=== PATIENT | male | born 1955 | race Caucasian/White ===

== ENCOUNTER 2016-09-10 11:31 | Inpatient (IN) | payer OTHER ==
[2016-09-10 11:58] VITALS: BMI 42.0
--- NOTE | 2016-09-10 13:48 | HP ---
CIWA Score - CIWA Score Nausea/Vomitin Muscle Tremors: 3 Anxiety: 3 Agitation: 2 Paroxysmal Sweats: 2 Orientation: 0-Oriented Tacttile Disturbances: 2-Mild Itch/Numbness/Burn Auditory Disturbances: 2-Mild Harshness/Frighten Visual Disturbances: 2-Mild Sensitivity Headache: 2-Mild CIWA-Ar Total Score: 21 Admission ROS BHS - HPI Chief Complaint: i need help to stop drinking alcohol Allergies/Adverse Reactions: Allergies Allergy/AdvReac Type Severity Reaction Status Date / Time No Known Allergies Allergy Verified 09/10/16 12:26 History of Present Illness: this 60 years old with alcohol dependence,withdrawal symptom,last detox in 1985 syncope alcohol related legally blind left s/o corrective surgery left longest period of sobriety 2o years Exam Limitations: No Limitations - Ebola screening Have you traveled outside of the country in the last 21 days: No Have you been sick,other than usual withdrawal symptoms: No - Review of Systems Constitutional: Loss of Appetite, Malaise, Night Sweats, Changes in sleep EENT: reports: Nose Congestion, Other (legally blind left s/p correctiv esurgery left) Respiratory: reports: No Symptoms reported Cardiac: reports: No Symptoms Reported GI: reports: Diarrhea, Nausea, Vomiting : reports: No Symptoms Reported Musculoskeletal: reports: Back Pain, Muscle Pain Integumentary: reports: Dryness Neuro: reports: Headache, Tremors Endocrine: reports: No Symptoms Reported Hematology: reports: No Symptoms Reported Psychiatric: reports: Depressed Other Systems: Reviewed and Negative Patient History - Patient Medical History Hx Anemia: No Hx Asthma: No Hx Chronic Obstructive Pulmonary Disease (COPD): No Hx Cancer: No Hx Cardiac Disorders: No Hx Congestive Heart Failure: No Hx Hypertension: No Hx Hypercholesterolemia: No HX Cerebrovascular Accident: No Hx Seizures: No Hx Dementia: No Hx Diabetes: No Hx Gastrointestinal Disorders: Yes (acid reflux) Hx Liver Disease: No Hx Genitourinary Disorders: No Hx Sexually Transmitted Disorders: No Hx Renal Disease (ESRD): No Hx Thyroid Disease: No Hx Human Immunodeficiency Virus (HIV): No (last 1007) Hx Hepatitis C: No Hx Depression: Yes (anxiety,insonia) Hx Suicide Attempt: No Hx Bipolar Disorder: No Hx Schizophrenia: No Other Medical History: no suicidal,no homicidal - Patient Surgical History Past Surgical History: Yes Hx Neurologic Surgery: No Hx Cataract Extraction: No Hx Cardiac Surgery: No Hx Lung Surgery: No Hx Breast Surgery: No Hx Breast Biopsy: No Hx Abdominal Surgery: No Hx Appendectomy: No Hx Cholecystectomy: No Hx Genitourinary Surgery: No Hx Section: No Hx Orthopedic Surgery: No Other Surgical History: left eye x2 legally blind left Anesthesia Reaction: No - PPD History Previous Implant?: Yes Documented Results: Negative w/o proof Implanted On Prior R Admission?: No PPD to be Administered?: Yes - Smoking Cessation Smoking history: Former smoker Have you smoked in the past 12 months: No If you are a former smoker, when did you quit?: 1985 Hx Chewing Tobacco Use: No Initiated information on smoking cessation: No - Substance & Tx. History Hx Alcohol Use: Yes Hx Substance Use: No Substance Use Type: Alcohol Hx Substance Use Treatment: Yes (1996 in [place]) - Substances Abused Alcohol-vodka Route: Oral Frequency: Daily Amount used: 1 pt. Age of first use: 14 Date of Last Use: 09/10/16 Family Disease History - Family Disease History Family History: Denies Admission Physical Exam [facility] - Vital Signs Vital Signs: Vital Signs - 24 hr 09/10/16 11:56 Temperature 99.2 F Pulse Rate 109 H Respiratory 20 Rate Blood Pressure 126/84 - Physical General Appearance: Yes: Moderate Distress, Tremorous, Irritable, Sweating, Anxious HEENTM: Yes: Normal ENT Inspection (legally blind left), Nasal Congestion, Rhinorrhea Respiratory: Yes: Lungs Clear, Normal Breath Sounds, No Respiratory Distress Neck: Yes: Supple, Trachea in good position Breast: Yes: Within Normal Limits Cardiology: Yes: Within Normal Limits, Regular Rhythm, Regular Rate, S1, S2 Abdominal: Yes: Within Normal Limits, Normal Bowel Sounds, Non Tender, Soft Genitourinary: Yes: Within Normal Limits Back: Yes: Muscle Spasm Musculoskeletal: Yes: Back pain, Muscle Pain Neurological: Yes: prototype engineer II-XII NML intact, Fully Oriented, Alert, Motor Strength 5/5 Integumentary: Yes: Dry Lymphatic: Yes: Within Normal Limits - Diagnostic (1) Alcohol dependence with uncomplicated withdrawal Current Visit: Yes Status: Acute (2) Syncope Current Visit: Yes Status: Acute (3) Insomnia Current Visit: Yes Status: Acute (4) Anxiety and depression Current Visit: Yes Status: Acute (5) GERD (gastroesophageal reflux disease) Current Visit: Yes Status: Acute (6) Blindness of left eye Current Visit: Yes Status: Acute Cleared for Admission [facility] - Detox or Rehab [facility] Level of Care: Medically Managed Detox Regimen/Protocol: Librium [facility] Breath Alcohol Content Breath Alcohol Content: 0.144 Urine Drug Screen - Results Drug Screen Negative: Yes
[2016-09-10] MEDS ORDERED: IBUPROFEN 400 MG TABLET (FP) PO PRN (14:01)
[2016-09-10] MEDS ORDERED: LOPERAMIDE HCL 2 MG CAPSULE PO PRN (14:01)
[2016-09-10] MEDS ORDERED: guaiFENesin/D-METHORPHAN HB 10 ML UNIT-DOSE CUPS PO PRN (14:01)
[2016-09-10] MEDS ORDERED: MENTHOL/PHENOL 1 EACH UD MM PRN (14:01)
[2016-09-10] MEDS ORDERED: P-EPHED 60MG/TRIPROLIDI 2.5MG TABLET PO PRN (14:01)
[2016-09-10] MEDS ORDERED: ACETAMINOPHEN 325 MG TABLET (FP) PO PRN (14:01)
[2016-09-10] MEDS ORDERED: MAG HYDROX/AL HYDROX/SIMETH 30 ML UNIT-DOSE CUP PO PRN (14:01)
[2016-09-10] MEDS ORDERED: MAGNESIUM HYDROX 2400MG/30ML ORAL SUSPENSION 30 ML CUP PO PRN (14:01)
[2016-09-10] MEDS ORDERED: MAGNESIUM CITRATE 300 ML BOTTLE PO PRN (14:01)
[2016-09-10 14:39] LABS: HIV 1 & 2 AB NEGATIVE; HIV 1 AGp24 NEGATIVE
[2016-09-10] MEDS ORDERED: chlordiazePOXIDE HCL 25 MG CAPSULE PO ONE (15:00)
--- NOTE | 2016-09-10 16:46 | CONSULT ---
[facility] Psychiatric Consult - Data Date of interview: 09/10/16 Admission source: [facility] Identifying data: First admission to [facility] for this 60 y/o male seeking detox treatment for alcohol dependence.Patient is ,a father of one,domiciled,unemployed and supported on his senior living benefits. Substance Abuse History: - Smoking Cessation. Smoking history: Former smoker. Have you smoked in the past 12 months: No. If you are a former smoker, when did you quit?: 1985. Hx Chewing Tobacco Use: No. Initiated information on smoking cessation: No. - Substance & Tx. History. Hx Alcohol Use: Yes. Hx Substance Use: No. Substance Use Type: Alcohol. Hx Substance Use Treatment: Yes (1996 in [email or web address] - Substances Abused. Alcohol-vodka. Route: Oral. Frequency: Daily. Amount used: 1 pt. Age of first use: 14. Date of Last Use: 09/10/16. Confirmed by patient. Medical History: GERD and obesity.Blind in left eye and past history of orthosurgery for fracture of left ankle. Psychiatric History: History of treatment for anxiety (prescribed valium by a primary care doctor).Patient reports that his physician stopped providing scripts in December 2015 and,from that time on,his alcohol consumption escalated.No OPD care.Mr Ac has no contact with psychiatrists.He denies history of suicide attempts. Physical/Sexual Abuse/Trauma History: Patient denies. Additional Comment: Drug Screen Negative: Yes.Noted. Mental Status Exam - Mental Status Exam Alert and Oriented to: Time, Place, Person Cognitive Function: Good Patient Appearance: Well Groomed (obese) Mood: Anxious, Apprehensive, Hopeful Affect: Normal Range Patient Behavior: Appropriate, Cooperative (well-mannered) Speech Pattern: Clear, Appropriate Voice Loudness: Normal Thought Process: Goal Oriented Thought Disorder: Not Present Hallucinations: Denies Suicidal Ideation: Denies Homicidal Ideation: Denies Insight/Judgement: Fair Sleep: Poorly, Difficulty falling asleep Appetite: Good Muscle strength/Tone: Normal Gait/Station: Normal Psychiatric Findings - Problem List ([place] 1, 2,3) (1) Alcohol dependence with uncomplicated withdrawal Current Visit: Yes Status: Acute (2) Alcohol-induced mood disorder Current Visit: Yes Status: Suspected (3) Blindness of left eye Current Visit: Yes Status: Chronic (4) GERD (gastroesophageal reflux disease) Current Visit: Yes Status: Chronic (5) Insomnia Current Visit: Yes Status: Acute - Initial Treatment Plan Initial Treatment Plan: Psychoeducation.Detoxification.Choices of hypnotic medications are presented to the patient.Zolpidem is out of question (patient reports occurrence of parasomnias :moving in the house/calling people through the night while asleep).He rejects seroquel (patient is already morbidly obese); trazodone is avoided out of fear of erectile issues.Patient agrees to have a trial with mirtazapine at the dose of 7.5 mg po hs.Side effects/benefits discussed with the patient.Observation.
[2016-09-10] MEDS: chlordiazePOXIDE HCL 25 MG CAPSULE PO SCH ×2 (17:14→22:01)
[2016-09-10 20:49] LABS: URINE APPEARANCE CLEAR; URINE BILIRUBIN NEGATIVE (NEGATIVE); URINE BLOOD NEGATIVE (NEGATIVE); URINE COLOR LTYELLOW; URINE GLUCOSE (UA) NEGATIVE (NEGATIVE); URINE KETONE NEGATIVE (NEGATIVE); URINE LEUK ESTERASE NEGATIVE (NEGATIVE); URINE NITRITE NEGATIVE (NEGATIVE); URINE PROTEIN NEGATIVE (NEGATIVE); URINE UROBILINOGEN NEGATIVE E.U./dl (0.2-1.0)
[2016-09-10] MEDS: diphenhydrAMINE HCL 50 MG CAPSULE PO PRN (22:01)
[2016-09-10] MEDS: THIAMINE HCL 100 MG TABLET (FP) PO SCH (22:01)
[2016-09-10] MEDS: MIRTAZAPINE 15 MG TABLET (FP) PO SCH (22:02)
[2016-09-11] MEDS: chlordiazePOXIDE HCL 25 MG CAPSULE PO PRN ×4 (02:14→19:25)
[2016-09-11] MEDS: chlordiazePOXIDE HCL 25 MG CAPSULE PO SCH ×4 (05:31→22:02)
[2016-09-11 10:02] LABS: MCH 34.9 pg (25.7-33.7); MCHC 33.1 g/dl (32.0-35.9); MEAN CELL VOLUME 105.7 fl (80-96); MEAN PLT VOLUME 9.9 fl (7.5-11.1); PLATELET COUNT 171 K/MM3 (134-434); RDW 14.6 % (11.9-15.9); WHITE BLOOD COUNT 4.4 K/mm3 (4.0-10.0)
[2016-09-11] MEDS: PANTOPRAZOLE 40 MG TABLET (FP) PO SCH (10:06)
[2016-09-11] MEDS: PRENATAL VITAMINS W/ FOLIC ACID TABLET (FP) PO SCH (10:06)
--- NOTE | 2016-09-11 10:53 | PN ---
[facility] CIWA - CIWA Score Nausea/Vomitin-No Nausea/No Vomiting Muscle Tremors: 4-Moderate,w/Arms Extend Anxiety: 4-Mod. Anxious/Guarded Agitation: 4-Moderately Restless Paroxysmal Sweats: 1-Minimal Palms Moist Orientation: 0-Oriented Tacttile Disturbances: 3-Moderate Itch/Numb/Burn Auditory Disturbances: 0-None Visual Disturbances: 0-None Headache: 0-None Present CIWA-Ar Total Score: 16 BHS Progress Note (SOAP) Subjective: ANXIETY,SWEATS, TREMORS,INTERMITTENT SLEEP Objective: 09/11/16 10:52 Vital Signs Temperature 98.1 F 09/11/16 09:31 Pulse Rate 106 H 09/11/16 09:31 Respiratory Rate 20 09/11/16 09:31 Blood Pressure 144/89 09/11/16 09:31 O2 Sat by Pulse Oximetry (%) Laboratory Last Values WBC 4.4 K/mm3 (4.0-10.0) 09/11/16 06:00 RBC 4.59 M/mm3 (4.00-5.60) 09/11/16 06:00 Hgb 16.0 GM/dL (11.7-16.9) 09/11/16 06:00 Hct 48.5 % (35.4-49) 09/11/16 06:00 MCV 105.7 fl (80-96) H 09/11/16 06:00 MCHC 33.1 g/dl (32.0-35.9) 09/11/16 06:00 RDW 14.6 % (11.9-15.9) 09/11/16 06:00 Plt Count 171 K/MM3 (134-434) 09/11/16 06:00 MPV 9.9 fl (7.5-11.1) 09/11/16 06:00 Urine Color Ltyellow 09/10/16 19:30 Urine Appearance Clear 09/10/16 19:30 Urine pH 5.0 (5.0-8.0) 09/10/16 19:30 Ur Specific [place] 1.010 (1.001-1.035) 09/10/16 19:30 Urine Protein Negative (NEGATIVE) 09/10/16 19:30 Urine Glucose (UA) Negative (NEGATIVE) 09/10/16 19:30 Urine Ketones Negative (NEGATIVE) 09/10/16 19:30 Urine Blood Negative (NEGATIVE) 09/10/16 19:30 Urine Nitrite Negative (NEGATIVE) 09/10/16 19:30 Urine Bilirubin Negative (NEGATIVE) 09/10/16 19:30 Urine Urobilinogen Negative E.U./dl (0.2-1.0) 09/10/16 19:30 Ur Leukocyte Esterase Negative (NEGATIVE) 09/10/16 19:30 HIV 1&2 Antibody Screen Negative 09/10/16 13:20 HIV P24 Antigen Negative 09/10/16 13:20 Assessment: 09/11/16 10:53 WITHDRAWAL SX Plan: CONTINUE DETOX
[2016-09-11 11:14] LABS: ALBUMIN 4.6 g/dl (3.4-5.0); ALK PHOS 60 U/L (45-117); ANION GAP 14 (8-16); BILIRUBIN,TOTAL 0.6 mg/dL (0.2-1.0); CALCIUM 9.5 mg/dL (8.5-10.1); CO2 25 mmol/L (21-32); GLUCOSE,RANDOM 79 mg/dL (74-106); SGOT/AST 90 U/L (15-37); SGPT/ALT 104 U/L (12-78); TOT PROT 7.3 g/dl (6.4-8.2)
[2016-09-11 11:49] LABS: ANISOCYTOSIS 2+
[2016-09-11 11:50] LABS: TEAR DROP CELLS 1+
[2016-09-11] MEDS ORDERED: INFLUENZA VACCINE 45 MCG/0.5 ML (MDV 16-17) IM ONE (12:00)
--- NOTE | 2016-09-11 17:18 | EKG ---
Test Reason : Blood Pressure : / mmHG Vent. Rate : 107 BPM Atrial Rate : 107 BPM P-R Int : 192 ms QRS Dur : 090 ms QT Int : 336 ms P-R-T Axes : 047 -14 041 degrees QTc Int : 448 ms SINUS TACHYCARDIA OTHERWISE NORMAL ECG NO PREVIOUS ECGS AVAILABLE Confirmed by STANLEY GARY MD ([id number]) on 09/11/2016 5:17:52 PM Referred By: Confirmed By:STANLEY GARY MD
[2016-09-11] MEDS: CYCLOBENZAPRINE HCL 10 MG TABLET (FP) PO SCH (22:02)
[2016-09-11] MEDS: THIAMINE HCL 100 MG TABLET (FP) PO SCH (22:02)
[2016-09-11] MEDS: MIRTAZAPINE 15 MG TABLET (FP) PO SCH (22:02)
[2016-09-11] MEDS: diphenhydrAMINE HCL 50 MG CAPSULE PO PRN (22:03)
[2016-09-12] MEDS: CYCLOBENZAPRINE HCL 10 MG TABLET (FP) PO SCH ×3 (05:39→22:08)
[2016-09-12] MEDS: chlordiazePOXIDE HCL 25 MG CAPSULE PO SCH ×2 (05:39→10:07)
--- NOTE | 2016-09-12 09:07 | PN ---
S CIWA - CIWA Score Nausea/Vomitin Muscle Tremors: 3 Anxiety: 4-Mod. Anxious/Guarded Agitation: 4-Moderately Restless Paroxysmal Sweats: 3 Orientation: 0-Oriented Tacttile Disturbances: 2-Mild Itch/Numbness/Burn Auditory Disturbances: 0-None Visual Disturbances: 0-None Headache: 0-None Present CIWA-Ar Total Score: 18 BHS Progress Note (SOAP) Subjective: Sweating,anxiety,tremors,interrupted sleep,restless Objective: 09/12/16 09:06 Vital Signs - 8 hr 09/12/16 06:37 Temperature 97.6 F Pulse Rate 104 H Respiratory 18 Rate Blood Pressure 131/91 Laboratory Last Values WBC 4.4 K/mm3 (4.0-10.0) 09/11/16 06:00 RBC 4.59 M/mm3 (4.00-5.60) 09/11/16 06:00 Hgb 16.0 GM/dL (11.7-16.9) 09/11/16 06:00 Hct 48.5 % (35.4-49) 09/11/16 06:00 MCV 105.7 fl (80-96) H 09/11/16 06:00 MCHC 33.1 g/dl (32.0-35.9) 09/11/16 06:00 RDW 14.6 % (11.9-15.9) 09/11/16 06:00 Plt Count 171 K/MM3 (134-434) 09/11/16 06:00 MPV 9.9 fl (7.5-11.1) 09/11/16 06:00 Anisocytosis 2+ 09/11/16 06:00 Macrocytosis 2+ 09/11/16 06:00 Tear Drop Cells 1+ 09/11/16 06:00 Sodium 142 mmol/L (136-145) 09/11/16 06:00 Potassium 3.7 mmol/L (3.5-5.1) 09/11/16 06:00 Chloride 103 mmol/L (98-107) 09/11/16 06:00 Carbon Dioxide 25 mmol/L (21-32) 09/11/16 06:00 Anion Gap 14 (8-16) 09/11/16 06:00 BUN 8 mg/dL (7-18) 09/11/16 06:00 Creatinine 1.0 mg/dL (0.7-1.3) 09/11/16 06:00 Creat Clearance w eGFR > 60 (>60) 09/11/16 06:00 Random Glucose 79 mg/dL (74-106) 09/11/16 06:00 Calcium 9.5 mg/dL (8.5-10.1) 09/11/16 06:00 Total Bilirubin 0.6 mg/dL (0.2-1.0) 09/11/16 06:00 AST 90 U/L (15-37) H 09/11/16 06:00 ALT 104 U/L (12-78) H 09/11/16 06:00 Alkaline Phosphatase 60 U/L (45-117) 09/11/16 06:00 Total Protein 7.3 g/dl (6.4-8.2) 09/11/16 06:00 Albumin 4.6 g/dl (3.4-5.0) 09/11/16 06:00 Urine Color Ltyellow 09/10/16 19:30 Urine Appearance Clear 09/10/16 19:30 Urine pH 5.0 (5.0-8.0) 09/10/16 19:30 Ur Specific [place] 1.010 (1.001-1.035) 09/10/16 19:30 Urine Protein Negative (NEGATIVE) 09/10/16 19:30 Urine Glucose (UA) Negative (NEGATIVE) 09/10/16 19:30 Urine Ketones Negative (NEGATIVE) 09/10/16 19:30 Urine Blood Negative (NEGATIVE) 09/10/16 19:30 Urine Nitrite Negative (NEGATIVE) 09/10/16 19:30 Urine Bilirubin Negative (NEGATIVE) 09/10/16 19:30 Urine Urobilinogen Negative E.U./dl (0.2-1.0) 09/10/16 19:30 Ur Leukocyte Esterase Negative (NEGATIVE) 09/10/16 19:30 RPR Titer Nonreactive (NONREACTIVE) 09/11/16 06:00 Hepatitis C Antibody 0.1 s/co ratio (0.0-0.9) 09/11/16 10:50 HIV 1&2 Antibody Screen Negative 09/10/16 13:20 HIV P24 Antigen Negative 09/10/16 13:20 labs noted Assessment: 09/12/16 09:06 Withdrawal sx. Plan: Continue detox
[2016-09-12] MEDS: PANTOPRAZOLE 40 MG TABLET (FP) PO SCH (10:07)
[2016-09-12] MEDS: PRENATAL VITAMINS W/ FOLIC ACID TABLET (FP) PO SCH (10:07)
[2016-09-12] MEDS: TOLNAFTATE 1% CREAM 15 GM TUBE TP SCH ×2 (10:08→22:16)
[2016-09-12] MEDS: chlordiazePOXIDE HCL 25 MG CAPSULE PO PRN ×2 (13:19→19:53)
[2016-09-12] MEDS: ALBUTEROL SO4 2.5/IPRATROPIUM 0.5 INH SOL 3 ML VIAL.NEB. NEB PRN ×2 (15:24→21:41)
[2016-09-12] MEDS: SODIUM CHLORIDE NASAL SPRAY 44 ML BOTTLE NS PRN (15:43)
--- NOTE | 2016-09-12 16:45 | PN ---
[facility] Progress Note Note: Received report from Holland Aldana RN that pt. C/O SOB. PRN Nebulizer treatment ordered for pt. approx. 1 hour prior to reciving report. However, pt. still requesting to speak directly to medical provider. When pt. was seen on unit, he was undergoing nebulizer treatment. He denies chest pain and dizziness and notes that he feels significant improvement in his breathing after the nebulizer treatment completed. O2 Sat: 98 % on room air post-nebulizer treatment. Lung sounds auscultated clear and equal bilaterally. Heart sounds S1 , S2, no abnormalities noted. Admission ECG noted. Pt. able to ambulate on unit without any apparent difficulty. Pt. denies any history of Lung disease. Previous smoker; he stopped many years ago. He reports a history of a "Leaky Heart Valve," but denies any other cardiac history. Pt. advised to continue with PRN nebulizer treatments and to immediately notify medical staff should breathing difficulty occur at a later time. Patient advised to keep head of bead elevated when lying down and to get up out of bed slowly and cautiously when doing so. PATIENT ADVISED TO IMMEDIATELY FOLLOW-UP WITH WATER VALVE REPAIRER AND / OR FUNDS TRANSFER CLERK (pt. has one that he has seen previously) after discharge from Detox. Patient verbalized understanding of recommendation and instructions. Continue to monitor. Cleveland Shipman NP
[2016-09-12] MEDS: chlordiazePOXIDE 5 MG CAPSULE PO SCH ×2 (17:13→22:09)
[2016-09-12] MEDS: hydrOXYzine PAMOATE 50 MG CAPSULE (FP) PO PRN ×2 (17:16→22:09)
[2016-09-12] MEDS: THIAMINE HCL 100 MG TABLET (FP) PO SCH (22:08)
[2016-09-12] MEDS: MIRTAZAPINE 15 MG TABLET (FP) PO SCH (22:08)
[2016-09-12] MEDS: diphenhydrAMINE HCL 50 MG CAPSULE PO PRN (22:09)
[2016-09-13] MEDS: CYCLOBENZAPRINE HCL 10 MG TABLET (FP) PO SCH ×3 (05:36→22:06)
[2016-09-13] MEDS: chlordiazePOXIDE 5 MG CAPSULE PO SCH ×2 (05:38→10:06)
[2016-09-13] MEDS: PANTOPRAZOLE 40 MG TABLET (FP) PO SCH (10:06)
[2016-09-13] MEDS: TOLNAFTATE 1% CREAM 15 GM TUBE TP SCH ×2 (10:06→22:05)
[2016-09-13] MEDS: PRENATAL VITAMINS W/ FOLIC ACID TABLET (FP) PO SCH (10:06)
[2016-09-13] MEDS: hydrOXYzine PAMOATE 50 MG CAPSULE (FP) PO PRN ×4 (10:06→22:06)
--- NOTE | 2016-09-13 11:55 | PN ---
S Progress Note (SOAP) Subjective: Sweating,interrupted sleep,restless Objective: 09/13/16 11:54 Vital Signs - 8 hr 09/13/16 09/13/16 06:24 09:34 Temperature 97.0 F L 95.1 F L Pulse Rate 103 H 104 H Respiratory 18 18 Rate Blood Pressure 128/91 119/84 Laboratory Tests 09/10/16 09/10/16 09/11/16 13:20 19:30 06:00 WBC 4.4 RBC 4.59 Hgb 16.0 Hct 48.5 MCV 105.7 H MCHC 33.1 RDW 14.6 Plt Count 171 MPV 9.9 Anisocytosis 2+ Macrocytosis 2+ Tear Drop Cells 1+ Sodium Potassium Chloride Carbon Dioxide Anion Gap BUN Creatinine Creat Clearance w eGFR Random Glucose Calcium Total Bilirubin AST ALT Alkaline Phosphatase Total Protein Albumin Urine Color Ltyellow Urine Appearance Clear Urine pH 5.0 Ur Specific [place] 1.010 Urine Protein Negative Urine Glucose (UA) Negative Urine Ketones Negative Urine Blood Negative Urine Nitrite Negative Urine Bilirubin Negative Urine Urobilinogen Negative Ur Leukocyte Esterase Negative RPR Titer Hepatitis C Antibody HIV 1&2 Antibody Screen Negative HIV P24 Antigen Negative 09/11/16 09/11/16 09/11/16 06:00 06:00 10:50 WBC RBC Hgb Hct MCV MCHC RDW Plt Count MPV Anisocytosis Macrocytosis Tear Drop Cells Sodium 142 Potassium 3.7 Chloride 103 Carbon Dioxide 25 Anion Gap 14 BUN 8 Creatinine 1.0 Creat Clearance w eGFR > 60 Random Glucose 79 Calcium 9.5 Total Bilirubin 0.6 AST 90 H ALT 104 H Alkaline Phosphatase 60 Total Protein 7.3 Albumin 4.6 Urine Color Urine Appearance Urine pH Ur Specific [place] Urine Protein Urine Glucose (UA) Urine Ketones Urine Blood Urine Nitrite Urine Bilirubin Urine Urobilinogen Ur Leukocyte Esterase RPR Titer Nonreactive Hepatitis C Antibody 0.1 HIV 1&2 Antibody Screen HIV P24 Antigen labs noted Assessment: 09/13/16 11:54 Withdrawal sx. Plan: Continue detox
[2016-09-13] MEDS: SODIUM CHLORIDE NASAL SPRAY 44 ML BOTTLE NS PRN ×2 (15:06→22:05)
[2016-09-13] MEDS: chlordiazePOXIDE HCL 10 MG CAPSULE PO SCH ×2 (17:15→22:07)
[2016-09-13] MEDS: ALBUTEROL SO4 2.5/IPRATROPIUM 0.5 INH SOL 3 ML VIAL.NEB. NEB PRN (19:42)
[2016-09-13] MEDS: THIAMINE HCL 100 MG TABLET (FP) PO SCH (22:05)
[2016-09-13] MEDS: MIRTAZAPINE 15 MG TABLET (FP) PO SCH (22:06)
[2016-09-13 23:33] VITALS: TEMP 98
[2016-09-14] MEDS: chlordiazePOXIDE HCL 10 MG CAPSULE PO SCH (05:40)
[2016-09-14] MEDS: CYCLOBENZAPRINE HCL 10 MG TABLET (FP) PO SCH (05:40)
[2016-09-14 06:28] VITALS: BP 137/91; PULSE 100
--- NOTE | 2016-09-14 09:16 | DS ---
[facility] Detox Discharge Summary Admission Date: 09/10/16 Discharge Date: 09/14/16 - History Present History: Alcohol Dependence Pertinent Past History: GERD - Physical Exam Results Vital Signs: Vital Signs Temperature 98.0 F 09/14/16 06:27 Pulse Rate 100 H 09/14/16 06:27 Respiratory Rate 18 09/14/16 06:27 Blood Pressure 137/91 09/14/16 06:27 O2 Sat by Pulse Oximetry (%) Pertinent Admission Physical Exam Findings: Withdrawal sx. Laboratory Last Values WBC 4.4 K/mm3 (4.0-10.0) 09/11/16 06:00 RBC 4.59 M/mm3 (4.00-5.60) 09/11/16 06:00 Hgb 16.0 GM/dL (11.7-16.9) 09/11/16 06:00 Hct 48.5 % (35.4-49) 09/11/16 06:00 MCV 105.7 fl (80-96) H 09/11/16 06:00 MCHC 33.1 g/dl (32.0-35.9) 09/11/16 06:00 RDW 14.6 % (11.9-15.9) 09/11/16 06:00 Plt Count 171 K/MM3 (134-434) 09/11/16 06:00 MPV 9.9 fl (7.5-11.1) 09/11/16 06:00 Anisocytosis 2+ 09/11/16 06:00 Macrocytosis 2+ 09/11/16 06:00 Tear Drop Cells 1+ 09/11/16 06:00 Sodium 142 mmol/L (136-145) 09/11/16 06:00 Potassium 3.7 mmol/L (3.5-5.1) 09/11/16 06:00 Chloride 103 mmol/L (98-107) 09/11/16 06:00 Carbon Dioxide 25 mmol/L (21-32) 09/11/16 06:00 Anion Gap 14 (8-16) 09/11/16 06:00 BUN 8 mg/dL (7-18) 09/11/16 06:00 Creatinine 1.0 mg/dL (0.7-1.3) 09/11/16 06:00 Creat Clearance w eGFR > 60 (>60) 09/11/16 06:00 Random Glucose 79 mg/dL (74-106) 09/11/16 06:00 Calcium 9.5 mg/dL (8.5-10.1) 09/11/16 06:00 Total Bilirubin 0.6 mg/dL (0.2-1.0) 09/11/16 06:00 AST 90 U/L (15-37) H 09/11/16 06:00 ALT 104 U/L (12-78) H 09/11/16 06:00 Alkaline Phosphatase 60 U/L (45-117) 09/11/16 06:00 Total Protein 7.3 g/dl (6.4-8.2) 09/11/16 06:00 Albumin 4.6 g/dl (3.4-5.0) 09/11/16 06:00 Urine Color Ltyellow 09/10/16 19:30 Urine Appearance Clear 09/10/16 19:30 Urine pH 5.0 (5.0-8.0) 09/10/16 19:30 Ur Specific [place] 1.010 (1.001-1.035) 09/10/16 19:30 Urine Protein Negative (NEGATIVE) 09/10/16 19:30 Urine Glucose (UA) Negative (NEGATIVE) 09/10/16 19:30 Urine Ketones Negative (NEGATIVE) 09/10/16 19:30 Urine Blood Negative (NEGATIVE) 09/10/16 19:30 Urine Nitrite Negative (NEGATIVE) 09/10/16 19:30 Urine Bilirubin Negative (NEGATIVE) 09/10/16 19:30 Urine Urobilinogen Negative E.U./dl (0.2-1.0) 09/10/16 19:30 Ur Leukocyte Esterase Negative (NEGATIVE) 09/10/16 19:30 RPR Titer Nonreactive (NONREACTIVE) 09/11/16 06:00 Hepatitis C Antibody 0.1 s/co ratio (0.0-0.9) 09/11/16 10:50 HIV 1&2 Antibody Screen Negative 09/10/16 13:20 HIV P24 Antigen Negative 09/10/16 13:20 labs noted - Treatment Hospital Course: Detox Protocol Followed, Detoxed Safely, Responded well, Discharged Condition Good, Rehab Referral Accepted Patient has Accepted a Rehab Referral to: [facility] - Medication Discharge Medications: Ambulatory Orders Mirtazapine 7.5 mg PO HS #20 tablet 09/13/16 - Diagnosis (1) Alcohol dependence with uncomplicated withdrawal Current Visit: Yes Status: Acute (2) Insomnia Current Visit: Yes Status: Acute (3) Blindness of left eye Current Visit: Yes Status: Chronic (4) GERD (gastroesophageal reflux disease) Current Visit: Yes Status: Chronic Qualifiers: Esophagitis presence: without esophagitis Qualified Code(s): K21.9 - Gastro-esophageal reflux disease without esophagitis (5) Alcohol-induced mood disorder Current Visit: Yes Status: Suspected - AMA Did Patient Leave Against Medical Advice: No
[2016-09-14] MEDS: PRENATAL VITAMINS W/ FOLIC ACID TABLET (FP) PO SCH (09:19)
[2016-09-14] MEDS: PANTOPRAZOLE 40 MG TABLET (FP) PO SCH (09:19)
== END 2016-09-14 09:20 | disposition home or self-care (01) | DRG 775 ==
LOC: YASAS 11:31 → Y3N 13:36
PROVIDERS: ADMIT Internal Medicine Addiction Medicine; ATTEND Internal Medicine Addiction Medicine
PROC: HZ2ZZZZ Detoxification Services for Substance Abuse Treatment (ICD-10-PCS; principal; 2016-09-14)
DX: F10.230 Alcohol dependence with withdrawal, uncomplicated (principal); F10.24 Alcohol dependence with alcohol-induced mood disorder; F41.8 Other specified anxiety disorders; G47.00 Insomnia, unspecified; K21.9 Gastro-esophageal reflux disease without esophagitis; R55 Syncope and collapse; H54.42 Blindness, left eye, normal vision right eye
CPT/HCPCS: 36415; 80053; 81003; 85027; 86593; 87389; 93005; 93010; 94640